=== PATIENT | male | born 1960 | race Caucasian/White ===

== ENCOUNTER 2020-02-07 07:06 | Outpatient (CLI) | payer OTHER, SELFPAY ==
[2020-02-07 07:16] LABS: Basophils Absolute Auto 0.08 K/mm3 (0.00-0.10); Basophils Percent Auto 1.2 % (0.0-1.0); Eosinophils Absolute Auto 0.35 K/mm3 (0.02-0.50); Eosinophils Percent Auto 5.1 % (1.0-6.0); Hematocrit 44.4 % (40.0-54.0); Hemoglobin 14.7 g/dL (14.0-18.0); Immature Granulocyte Absolute 0.02 K/mm3 (0.00-0.00); Immature Granulocyte Percent A 0.3 % (0.0-0.0); Lymphocytes Absolute Auto 1.92 K/mm3 (1.10-4.50); Lymphocytes Percent Auto 28.1 % (18.0-42.0); Mean Corpuscular HGB Conc 33.1 g/dL (32.0-36.0); Mean Corpuscular Hemoglobin 30.8 pg (27.0-31.0); Mean Corpuscular Volume 93.1 fL (78.0-102.0); Mean Platelet Volume 9.7 fl (8.7-11.0); Monocytes Absolute Auto 0.67 K/mm3 (0.10-0.90); Monocytes Percent Auto 9.8 % (2.0-11.0); Neutrophils Absolute Auto 3.8 K/mm3 (1.7-7.2); Neutrophils Percent Auto 55.5 % (50.0-70.0); Platelet Count Result 261 K/mm3 (150-420); Red Blood Count 4.77 M/mm3 (4.70-6.10); Red Cell Distribution Width 13.4 % (11.6-14.4); White Blood Count 6.8 K/mm3 (4.8-10.8)
[2020-02-07 08:47] LABS: Alanine Aminotransferase 37 U/L (16-63); Albumin Level 3.9 g/dL (3.4-5.0); Alkaline Phosphatase 83 U/L (46-116); Anion Gap 11.5 mmol/L (7-16); Aspartate Amino Transferase 23 U/L (15-37); Bilirubin,Total 0.5 mg/dL (0.00-1.00); Blood Urea Nitrogen 18 mg/dL (7-18); Calcium 8.7 mg/dL (8.5-10.1); Carbon Dioxide 29 mmol/L (21-32); Chloride 105 mmol/L (98-108); Cholesterol 186 mg/dL (0-200); Estimated Glomerular Filt Rate > 60; Glucose 96 mg/dL (70-99); HDL Direct 39 mg/dL (40-60); LDL Cholesterol Calculated 117 mg/dL (<130); Osmolality Calculated 293 mOsm/kg (285-295); Potassium 4.5 mmol/L (3.5-5.1); Sodium 141 mmol/L (136-145); Total Protein 7.2 g/dL (6.4-8.2); Triglycerides 150 mg/dL (0-150)
[2020-02-07 09:22] LABS: Thyroid Stimulating Hormone Reflex 1.89 u/IU/mL (0.36-3.74)
== END 2020-02-07 07:07 | disposition home or self-care (01) ==
LOC: CHSLAB 07:09
PROVIDERS: PCP Family Medicine; Visit Provider Family Medicine
DX: E78.5 Hyperlipidemia, unspecified (principal); I10 Essential (primary) hypertension
CPT/HCPCS: 36415; 80053; 80061; 84443; 85025

== ENCOUNTER 2020-10-12 08:06 | Outpatient (CLI) | payer OTHER, SELFPAY ==
[2020-10-12 08:16] LABS: Basophils Percent Auto 1.5 % (0.0-1.0); Eosinophils Absolute Auto 0.31 K/mm3 (0.02-0.50); Eosinophils Percent Auto 4.5 % (1.0-6.0); Hematocrit 40.8 % (40.0-54.0); Hemoglobin 13.4 g/dL (14.0-18.0); Immature Granulocyte Absolute 0.03 K/mm3 (0.00-0.00); Immature Granulocyte Percent A 0.4 % (0.0-0.0); Lymphocytes Absolute Auto 2.28 K/mm3 (1.10-4.50); Lymphocytes Percent Auto 33.1 % (18.0-42.0); Mean Corpuscular HGB Conc 32.8 g/dL (32.0-36.0); Mean Corpuscular Hemoglobin 30.2 pg (27.0-31.0); Mean Corpuscular Volume 92.1 fL (78.0-102.0); Mean Platelet Volume 9.9 fl (8.7-11.0); Monocytes Absolute Auto 0.64 K/mm3 (0.10-0.90); Monocytes Percent Auto 9.3 % (2.0-11.0); Neutrophils Absolute Auto 3.5 K/mm3 (1.7-7.2); Neutrophils Percent Auto 51.2 % (50.0-70.0); Platelet Count Result 267 K/mm3 (150-420); Red Blood Count 4.43 M/mm3 (4.70-6.10); Red Cell Distribution Width 14.6 % (11.6-14.4); White Blood Count 6.9 K/mm3 (4.8-10.8)
[2020-10-12 10:03] LABS: Alanine Aminotransferase 32 U/L (16-63); Albumin Level 3.8 g/dL (3.4-5.0); Alkaline Phosphatase 95 U/L (46-116); Anion Gap 10 mmol/L (8-16); Aspartate Amino Transferase 41 U/L (15-37); Bilirubin,Total 0.5 mg/dL (0.00-1.00); Blood Urea Nitrogen 16 mg/dL (7-18); Calcium 8.7 mg/dL (8.5-10.1); Carbon Dioxide 28 mmol/L (21-32); Chloride 101 mmol/L (98-108); Estimated Glomerular Filt Rate > 60; Free T4 Free Thyroxine 0.93 ng/dL (0.76-1.46); Glucose 103 mg/dL (70-99); Magnesium 2.2 mg/dL (1.8-2.4); Osmolality Calculated 289 mOsm/kg (285-295); Potassium 4.3 mmol/L (3.5-5.1); Sodium 139 mmol/L (136-145); Thyroid Stimulating Hormone 2.24 uIU/mL (0.36-3.74); Vitamin B12 466 pg/mL (193-986)
[2020-10-15 11:58] LABS: Vitamin D 25 Hydroxy 20 ng/mL (30-100)
== END 2020-10-12 08:07 | disposition home or self-care (01) ==
LOC: CHSLAB 08:07
PROVIDERS: PCP Nurse Practitioner Family; Visit Provider Nurse Practitioner Family
DX: R42 Dizziness and giddiness (principal); Z79.899 Other long term (current) drug therapy
CPT/HCPCS: 36415; 80053; 82306; 82607; 83735; 84439; 84443; 85025

== ENCOUNTER 2020-11-06 07:59 | Outpatient (CLI) | payer OTHER, SELFPAY ==
[2020-11-08 11:30] LABS: Vitamin D 25 Hydroxy 55 ng/mL (30-100)
== END 2020-11-06 08:00 | disposition home or self-care (01) ==
LOC: CHSLAB 08:00
PROVIDERS: PCP Nurse Practitioner Family; Visit Provider Nurse Practitioner Family
DX: E55.9 Vitamin D deficiency, unspecified (principal)
CPT/HCPCS: 36415; 82306

== ENCOUNTER 2022-12-20 09:49 | Outpatient (CLI) | payer OTHER, SELFPAY ==
--- NOTE | ~2022-12-20 | XR_ITS ---
[id number] 12/20/2022 10:17 Indication: Pain inferior to the patella. Procedure: 2 views left knee Comparison: No prior studies for comparison. Findings: There is mild osteoarthritis of the patellofemoral joint. There is an unfused tibial tubero sity. No acute fracture or traumatic malalignment. No significant joint effusion. No foreign bodies. Impression: 1: Mild patellofemoral compartment osteoarthritis. Reviewed, dictated and finalized at location L. Impression: 1: Mild patellofemoral compartment osteoarthritis.
== END 2022-12-20 09:50 | disposition home or self-care (01) ==
LOC: CHSIMG 09:51
PROVIDERS: PCP Nurse Practitioner Family; Visit Provider Nurse Practitioner Family
DX: M25.562 Pain in left knee (principal); M17.12 Unilateral primary osteoarthritis, left knee
CPT/HCPCS: 73560

== ENCOUNTER 2023-07-19 12:59 | Outpatient (CLI) | payer OTHER, SELFPAY ==
--- NOTE | ~2023-07-19 | XR_ITS ---
EXAMINATION: XR ribs LT 2V DATE: 07/19/2023 13:23 INDICATION: Left chest injury. TECHNIQUE: 2 views of the left ribs on 3 radiographs were obtained. COMPARISON: None. FINDINGS: There is no left-sided pneumonia, pleural effusion, or pneumothorax. The heart size is norm al. IMPRESSION: 1. No rib fracture. Reviewed, dictated and finalized at location E. CT MARKETING COORDINATOR IMPRESSION: 1. No rib fracture.
== END 2023-07-19 13:00 | disposition home or self-care (01) ==
PROVIDERS: PCP Nurse Practitioner Family; Visit Provider Nurse Practitioner Family
DX: R07.81 Pleurodynia (principal)
CPT/HCPCS: 71100

== ENCOUNTER 2023-11-02 11:36 | Outpatient (CLI) | payer MEDICARE, SELFPAY ==
--- NOTE | ~2023-11-02 | XR_ITS ---
Right Shoulder Technique: AP and scapular Y views were obtained. Clinical History: Pain Findings: No fracture or dislocation is seen. Osseous alignment is anatomic. Moderate to severe gleno humeral joint degenerative change present. AC joint demonstrates minimal degenerative change. Soft ti ssues are unremarkable. Impression: Degenerative changes, as above, worst at the glenohumeral joint. Reviewed, dictated and finalized at [facility]. Impression: Degenerative changes, as above, worst at the glenohumeral joint.
== END 2023-11-02 11:37 | disposition home or self-care (01) ==
LOC: CHSIMG 11:39
PROVIDERS: PCP Nurse Practitioner Family; Visit Provider Nurse Practitioner Family
DX: M25.511 Pain in right shoulder (principal)
CPT/HCPCS: 73030

== ENCOUNTER 2023-11-13 09:58 | Outpatient (CLI) | payer MEDICARE, SELFPAY ==
[2023-11-13 10:16] LABS: Basophils Absolute Auto 0.08 K/mm3 (0.00-0.10); Eosinophils Absolute Auto 0.22 K/mm3 (0.02-0.50); Eosinophils Percent Auto 2.6 % (1.0-6.0); Hematocrit 43.9 % (40.0-54.0); Hemoglobin 14.2 g/dL (14.0-18.0); Immature Granulocyte Absolute 0.03 K/mm3 (0.00-0.00); Immature Granulocyte Percent A 0.4 % (0.0-0.0); Lymphocytes Absolute Auto 1.71 K/mm3 (1.10-4.50); Lymphocytes Percent Auto 20.3 % (18.0-42.0); Mean Corpuscular HGB Conc 32.3 g/dL (32-36); Mean Corpuscular Hemoglobin 30.5 pg (27.0-31.0); Mean Corpuscular Volume 94.4 fL (78.0-102.0); Mean Platelet Volume 9.6 fl (8.7-11.0); Monocytes Absolute Auto 0.69 K/mm3 (0.10-0.90); Monocytes Percent Auto 8.2 % (2.0-11.0); Neutrophils Absolute Auto 5.68 K/mm3 (1.70-7.20); Neutrophils Percent Auto 67.5 % (50.0-70.0); Platelet Count Result 271 K/mm3 (150-420); Red Blood Count 4.65 M/mm3 (4.70-6.10); Red Cell Distribution Width 13.9 % (11.6-14.4); White Blood Count 8.4 K/mm3 (4.8-10.8)
[2023-11-13 11:42] LABS: Alanine Aminotransferase 40 U/L (16-63); Albumin Level 3.9 g/dL (3.4-5.0); Alkaline Phosphatase 84 U/L (46-116); Anion Gap 7 mmol/L (4-12); Aspartate Amino Transferase 23 U/L (15-37); Bilirubin,Total 0.4 mg/dL (0.00-1.00); Blood Urea Nitrogen 15 mg/dL (7-18); Calcium 8.6 mg/dL (8.5-10.1); Carbon Dioxide 30 mmol/L (21-32); Chloride 102 mmol/L (98-108); Cholesterol 213 mg/dL (0-200); Estimated Glomerular Filt Rate > 60; Glucose 101 mg/dL (70-99); HDL Direct 55 mg/dL (40-60); LDL Cholesterol Calculated 128 mg/dL (<130); Osmolality Calculated 288 mOsm/kg (285-295); Potassium 4.5 mmol/L (3.5-5.1); Sodium 139 mmol/L (136-145); Total Protein 7.1 g/dL (6.4-8.2); Triglycerides 150 mg/dL (0-150); Vitamin B12 530 pg/mL (193-986)
[2023-11-15 09:59] LABS: Vitamin D 25 Hydroxy 37 ng/mL (30-100)
== END 2023-11-13 09:59 | disposition home or self-care (01) ==
PROVIDERS: PCP Nurse Practitioner Family; Visit Provider Nurse Practitioner Family
DX: E53.8 Deficiency of other specified B group vitamins (principal); Z79.899 Other long term (current) drug therapy; E55.9 Vitamin D deficiency, unspecified; Z13.6 Encounter for screening for cardiovascular disorders; E78.5 Hyperlipidemia, unspecified; I10 Essential (primary) hypertension
CPT/HCPCS: 36415; 80053; 80061; 82306; 82607; 85025

== ENCOUNTER 2025-02-11 09:30 | Outpatient (RCR) | payer MEDICARE, SELFPAY ==
--- NOTE | 2024-12-18 10:02 | OPREHPOC ---
Outpatient Therapy Plan of Care This is a Multidisciplinary Plan of Care that may contain components documented by all disciplines (PT, OT, and ST.) PT Problem 1 PT Problem #1 Knowledge Deficit PT Goal 1 Goal / Goal Update independent and compliant with HEP Target Visit 4 PT Problem 2 PT Problem #2 Pain PT Goal 1 Goal / Goal Update decrease pain at worst to 3/10 or less in the last week Target Visit 8 PT Problem 3 PT Problem #3 Impaired Range of Motion PT Goal 1 Goal / Goal Update 120 degrees passive R shoulder flexion in scapular plane 60 degrees passive R shoulder ER in scapular plane Target Visit 8 PT Problem 4 PT Problem #4 Impaired Functional Mobility PT Goal 1 Goal / Goal Update 1. patient to sleep through the night in bed 5 nights a week or better Target Visit 8
--- NOTE | 2024-12-18 10:02 | PTOPEVAL1 ---
Assessment and note entered by JT File, PT Evaluation Information Assessment Status Evaluation Diagnosis s/p reverse R TSA ICD-10 Condition Codes (PT) Pain in right shoulder M25.511,Encounter for other orthopedic aftercare Z47.89,Aftercare following joint replacement surgery Z47.1 Onset 12/04/24 Subjective Information patient reports leading up to surgery he had a horrible shoulder. he reports the surgeon told him afterwards it was the worst he had ever seen. he reports he was not able to fully lift the arm overhead, and was limited to shoulder level activities. he reports he has been allowed to come out of his post op sling, and has been able to return to driving. he reports he has had some pain in the R shoulder since, but low for the most part. he reports it is still tough to get comfortable to sleep at night. he reports he would like to get back to mowing the lawn and golfing. he is on a standard post-op protocol for reverse total shoulder. Reported Pain Level Pain Score 2: Self Report Assessment PT Clinical Summary mr. monaco is a pleasant 64 yo man who presents to skilled PT for rehab following reverse R total shoulder replacement. he is 2 weeks post op today and under limited ROM precautions per his post op protocol. he will slowly progress under passive ROM and isometric precautions over the next 4 weeks until he is able to begin aarom at 6 weeks post op. patient will benefit from continued skilled PT to improve his rom and isometric strength to progress towards return to functional activities such as golf and mowing. Plan of Care Interventions Electrical Stimulation,Hot Pack/Cold Pack,Manual Therapy,Neuro Re-education,Patient/Caregiver Education,Therapeutic Activities,Therapeutic Exercise PT Services Indicated Yes Treatment Frequency and 2x weekly for 8 visits Duration These treatments will address the objective and functional deficits as defined above. The patient will be advanced safely and appropriately in order for the patient to progress towards his/her prior level of function. Additional exercises will be introduced and as well as a comprehensive home exercise program upon discharge, if needed, ?to ensure carryover of functional gains achieved in the clinic. This treatment plan has been reviewed and agreement upon by the patient.
--- NOTE | 2025-01-09 10:21 | OPREHPOC ---
Outpatient Therapy Plan of Care This is a Multidisciplinary Plan of Care that may contain components documented by all disciplines (PT, OT, and ST.) PT Problem 1 PT Problem #1 Knowledge Deficit PT Goal 1 Goal / Goal Update independent and compliant with HEP Target Visit 4 Progress Met PT Problem 2 PT Problem #2 Pain PT Goal 1 Goal / Goal Update decrease pain at worst to 3/10 or less in the last week Target Visit 8 Progress Met PT Goal 2 Goal / Goal Update patient to report no pain in the R shoulder in the last week Target Visit 16 PT Problem 3 PT Problem #3 Impaired Range of Motion PT Goal 1 Goal / Goal Update 120 degrees passive R shoulder flexion in scapular plane. met 60 degrees passive R shoulder ER in scapular plane . continue Target Visit 8 Progress Partially Met PT Goal 2 Goal / Goal Update passive rom of the R shoulder in IR to 50 degrees passive rom of the R shoulder flexion to 140 degrees or beter active R shoulder flex to 135 degrees or greater active R shoulder abd to 90 degrees or greater Target Visit 16 PT Problem 4 PT Problem #4 Impaired Functional Mobility PT Goal 1 Goal / Goal Update 1. patient to sleep through the night in bed 5 nights a week or better Target Visit 8 Progress Met PT Goal 2 Goal / Goal Update patient to be able to lift 2lbs from shoulder level shelf and place it at waist height and back to shoulder level shelf patient to be able to reach behind back to manage clothes/self care Target Visit 16
--- NOTE | 2025-01-09 10:21 | PTOPREEVAL ---
Assessment and note entered by JT File, PT Evaluation Information Assessment Status Re-evaluation Diagnosis s/p reverse R TSA ICD-10 Condition Codes (PT) Pain in right shoulder M25.511,Encounter for other orthopedic aftercare Z47.89,Aftercare following joint replacement surgery Z47.1 Onset 12/04/24 Subjective Information patient reports the R shoulder feels Good today. he reports he has little to no pain in the R shoulder at rest, and at worst has only felt 2/10 pain in the last week. he reports the shoulder is still weak as his elbow pops out when trying to lift the R arm. 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 Reported Pain Level Pain Score 0: Self Report Assessment PT Clinical Summary mr. monaco presents to skilled PT for his 8th skilled therapy visit today. he is a little over 5 weeks post op today, and still under PROM restrictions of the R shoulder. however, he has achieved his prom goal of forward flexion to 120 degrees as of this date, and increased ER to 30 degrees in scapular plane. patient would benefit from continued skilled PT as we are about to enter phase 2 of his rehab program next week which will allow the introduction of aarom and arom exercises and new ROM goals. Plan of Care Interventions Electrical Stimulation,Hot Pack/Cold Pack,Manual Therapy,Neuro Re-education,Patient/Caregiver Education,Therapeutic Activities,Therapeutic Exercise PT Services Indicated Yes Treatment Frequency and continue skilled PT 2x weekly for 8 more visits ( Duration 16 total) These treatments will address the objective and functional deficits as defined above. The patient will be advanced safely and appropriately in order for the patient to progress towards his/her prior level of function. Additional exercises will be introduced and as well as a comprehensive home exercise program upon discharge, if needed, ?to ensure carryover of functional gains achieved in the clinic. This treatment plan has been reviewed and agreement upon by the patient.
--- NOTE | 2025-02-11 10:20 | OPREHPOC ---
Outpatient Therapy Plan of Care This is a Multidisciplinary Plan of Care that may contain components documented by all disciplines (PT, OT, and ST.) PT Problem 1 PT Problem #1 Knowledge Deficit PT Goal 1 Goal / Goal Update independent and compliant with HEP Target Visit 4 Progress Met PT Problem 2 PT Problem #2 Pain PT Goal 1 Goal / Goal Update decrease pain at worst to 3/10 or less in the last week Target Visit 8 Progress Met PT Goal 2 Goal / Goal Update patient to report no pain in the R shoulder in the last week Target Visit 24 PT Problem 3 PT Problem #3 Impaired Range of Motion PT Goal 1 Goal / Goal Update 120 degrees passive R shoulder flexion in scapular plane. met 60 degrees passive R shoulder ER in scapular plane . continue Target Visit 24 Progress Partially Met PT Goal 2 Goal / Goal Update passive rom of the R shoulder in IR to 50 degrees. met passive rom of the R shoulder flexion to 140 degrees or better. met active R shoulder flex to 135 degrees or greater. not met active R shoulder abd to 90 degrees or greater. met Target Visit 24 Progress Partially Met PT Problem 4 PT Problem #4 Impaired Functional Mobility PT Goal 1 Goal / Goal Update 1. patient to sleep through the night in bed 5 nights a week or better Target Visit 8 Progress Met PT Goal 2 Goal / Goal Update patient to be able to lift 2lbs from shoulder level shelf and place it at waist height and back to shoulder level shelf patient to be able to reach behind back to manage clothes/self care Target Visit 24 Progress Not Met
--- NOTE | 2025-02-11 10:21 | PTOPREEVAL ---
Assessment and note entered by JT File, PT Evaluation Information Assessment Status Re-evaluation Diagnosis s/p reverse R TSA ICD-10 Condition Codes (PT) Pain in right shoulder M25.511,Encounter for other orthopedic aftercare Z47.89,Aftercare following joint replacement surgery Z47.1 Onset 12/04/24 Subjective Information patient reports he feels Better overall. he reports he is now able to do things at home, and reports he has been doing yard work, including operating a graciela. he reports the shoulder is a little sore today from this. Reported Pain Level Pain Score 2: Self Report Assessment PT Clinical Summary mr monaco presents to skilled PT services for his 16th skilled PT visit s/p R reverse TSA. he presents to therapy today 1 day before the 10 week post op junie. he is progressing in his arom and functional activities as he has been cleared by his surgeon to work up to 5lbs. he still lacks achievement of goals in relation to rom, strength, and functional performance/lifting. continued skilled PT is indicated to help patient achieve goals and return to his prior level functional activity performance/quality of life including playing golf. Plan of Care Interventions Electrical Stimulation,Hot Pack/Cold Pack,Manual Therapy,Neuro Re-education,Patient/Caregiver Education,Therapeutic Activities,Therapeutic Exercise PT Services Indicated Yes Treatment Frequency and continue skilled PT 2x weekly for 8 more visits Duration These treatments will address the objective and functional deficits as defined above. The patient will be advanced safely and appropriately in order for the patient to progress towards his/her prior level of function. Additional exercises will be introduced and as well as a comprehensive home exercise program upon discharge, if needed, ?to ensure carryover of functional gains achieved in the clinic. This treatment plan has been reviewed and agreement upon by the patient.
--- NOTE | 2025-03-11 10:13 | OPREHPOC ---
Outpatient Therapy Plan of Care This is a Multidisciplinary Plan of Care that may contain components documented by all disciplines (PT, OT, and ST.) PT Problem 1 PT Problem #1 Knowledge Deficit PT Goal 1 Goal / Goal Update independent and compliant with HEP Target Visit 4 Progress Met PT Problem 2 PT Problem #2 Pain PT Goal 1 Goal / Goal Update decrease pain at worst to 3/10 or less in the last week Target Visit 8 Progress Met PT Goal 2 Goal / Goal Update patient to report no pain in the R shoulder in the last week Target Visit 24 Progress Met PT Problem 3 PT Problem #3 Impaired Range of Motion PT Goal 1 Goal / Goal Update 120 degrees passive R shoulder flexion in scapular plane. met 60 degrees passive R shoulder ER in scapular plane . met Target Visit 24 Progress Met PT Goal 2 Goal / Goal Update passive rom of the R shoulder in IR to 50 degrees. met passive rom of the R shoulder flexion to 140 degrees or better. met active R shoulder flex to 135 degrees or greater. met active R shoulder abd to 90 degrees or greater. met Target Visit 24 Progress Met PT Problem 4 PT Problem #4 Impaired Functional Mobility PT Goal 1 Goal / Goal Update 1. patient to sleep through the night in bed 5 nights a week or better Target Visit 8 Progress Met PT Goal 2 Goal / Goal Update patient to be able to lift 2lbs from shoulder level shelf and place it at waist height and back to shoulder level shelf -met patient to be able to reach behind back to manage clothes/self care -met Target Visit 24 Progress Met
--- NOTE | 2025-03-11 10:13 | PTOPDC ---
Assessment and note entered by Sybil Luciano, PT Evaluation Information Assessment Status Discharge Diagnosis s/p reverse R TSA ICD-10 Condition Codes (PT) Pain in right shoulder M25.511,Encounter for other orthopedic aftercare Z47.89,Aftercare following joint replacement surgery Z47.1 Onset 12/04/24 Subjective Information Ayo Hadley reports his right shoulder is doing well overall. He is back to his previous activity level except swinging a golf club because his surgeon did not want him to play golf until March. He is not having pain in the right shoulder unless he reaches behind his back too far . He can reach behind his back but too far makes it sore. He does not have anymore follow ups with his surgeon. Reported Pain Level Pain Score 0: Self Report Assessment PT Clinical Summary Ayo Hadley has completed 24 skilled PT visits following a right reverse TSA. He is reporting ability to perform all previous activities except golf because his surgeon didn't want him to play golf until March. He demonstrates improved right shoulder active and passive ROM and improved right shoulder strength. He has been able to return to his previous activity level and is sleeping without difficulty. He is also performing yard work as well. He has met all goals and will be discharged to an independent [facility]. Plan of Care PT Services Indicated No
== END 2025-03-11 13:32 | disposition home or self-care (01) ==
LOC: CHSPT 09:30
PROVIDERS: Visit Provider Orthopaedic Surgery
DX: M25.511 Pain in right shoulder (principal); Z96.611 Presence of right artificial shoulder joint; Z47.1 Aftercare following joint replacement surgery
CPT/HCPCS: 97014; 97110; 97112; 97150; 97161; 97530; 97750; G0283